=== PATIENT | female | born 1970 | race Caucasian/White ===

== ENCOUNTER → 2016-10-06 | Outpatient (CLI) | payer OTHER ==
[~2016-10-06] MED LIST: DULO30CA PO
[2016-10-06 14:51] LABS: BASOPHILS % (AUTO) 0 % (0-2); EOSINOPHILS # (AUTO) 0.2 10^3uL; EOSINOPHILS % (AUTO) 2 % (0-4); LYMPHOCYTES # (AUTO) 2.4 X10^3; MEAN CORPUSCULAR HGB CONC 33.6 g/dL (31.0-37.0); MEAN CORPUSCULAR VOLUME 89 FL (80-100); MEAN PLATELET VOLUME 9.3 FL (6.0-9.5); MONOCYTES % (AUTO) 11 % (3-11); NEUTROPHILS # (AUTO) 5.6 X10^3; NEUTROPHILS % (AUTO) 61 % (51-67); PLATELET COUNT 344 10^3uL (150-450)
[2016-10-06 15:49] LABS: ERYTHROCYTE SEDIMENTATION RT* 25 mm/hr (0-21)
--- NOTE | 2016-10-06 18:37 | Diagnostic Imaging Report ---
INDICATION: Chronic low back pain with radiculopathy. COMPARISON: None available. TECHNIQUE: Five views of the lumbar spine. FINDINGS: The lumbar spine is normal in alignment. No spondylolisthesis or spondylolysis. Mild degenerative narrowing of the L3-L4 disc space and small anterior endplate spurring at L2-L3. No significant hypertrophic degenerative changes in the spine. There is a 7 mm mineralized focus overlying the lower pole of the left renal fossa, which may represent a renal stone versus intraluminal bowel content. IMPRESSION: 1. Mild degenerative disc disease in the lumbar spine. 2. Possible 7 mm left renal calculus versus intraluminal bowel content. Dictated by: Dictated on workstation # [id number]
== END ==
LOC: LAB 14:30
PROVIDERS: ATTEND Family Medicine
DX: M54.16 Radiculopathy, lumbar region (principal); R53.83 Other fatigue
CPT/HCPCS: 36415; 72110; 84443; 85025; 85652; 86140; 86431